=== PATIENT | female | born 1970 | race Caucasian/White ===

== ENCOUNTER 2022-04-10 08:57 | Outpatient (CLI) | payer OTHER, SELFPAY ==
[2022-04-10 13:37] LABS: Albumin* 4.8 g/dL (3.3-5.0); Chloride* 102 mmol/L (96-114)
[2022-04-10 13:38] LABS: Potassium* 4.4 mmol/L (3.6-5.1); Sodium* 140 mmol/L (135-149)
[2022-04-10 13:40] LABS: Aspartate Amino Transferase* 27 U/L (12-35); Bilirubin Total* 0.7 mg/dL (0.1-1.5); Blood Urea Nitrogen* 13 mg/dL (7-30); Carbon Dioxide* 28 mmol/L (20-32); Cholesterol* 226 mg/dL (90-199); Creatinine* 0.6 mg/dL (0.5-1.5); Estimated Glomerular Filt Rate 107 ml/min; Total Protein* 7.6 g/dL (6.0-8.3)
[2022-04-10 13:41] LABS: Alanine Aminotransferase* 29 U/L (4-35); Alkaline Phosphatase* 83 U/L (40-150); Calcium* 9.7 mg/dL (8.4-10.6); Glucose* 135 mg/dL (60-115); HDL Cholesterol* 44 mg/dL (>=50); LDL Cholesterol Calculated 132 mg/dL (<100); Triglycerides* 251 mg/dL (40-149)
== END 2022-04-10 08:58 | disposition home or self-care (01) ==
PROVIDERS: PCP Physician Assistant Medical; Visit Provider Physician Assistant Medical
DX: Z01.419 Encounter for gynecological examination (general) (routine) without abnormal findings (principal); Z13.6 Encounter for screening for cardiovascular disorders; Z13.29 Encounter for screening for other suspected endocrine disorder
CPT/HCPCS: 80053; 80061; 84443

== ENCOUNTER 2022-06-24 08:50 | Outpatient (CLI) | payer OTHER, SELFPAY | END 2022-06-24 08:51 | disposition home or self-care (01) | LOC: OP CLINIC 08:52 | PROVIDERS: PCP Physician Assistant Medical; Visit Provider Surgery | DX: Z12.11 Encounter for screening for malignant neoplasm of colon (principal); K64.9 Unspecified hemorrhoids; K62.1 Rectal polyp; K57.30 Diverticulosis of large intestine without perforation or abscess without bleeding | CPT/HCPCS: 45385; 88305; 99153; J2250; J3010 ==

== ENCOUNTER 2022-10-11 08:34 | Outpatient (CLI) | payer OTHER, SELFPAY | END 2022-10-11 08:35 | disposition home or self-care (01) | LOC: NFLDREF 10-14 12:16 | PROVIDERS: PCP Physician Assistant Medical; Referring Provider Physician Assistant Medical; Visit Provider Physician Assistant Medical | DX: H53.9 Unspecified visual disturbance (principal) | CPT/HCPCS: 84550; 86200; 86592 ==

== ENCOUNTER 2023-07-14 15:56 | Outpatient (CLI) | payer OTHER, SELFPAY | END 2023-07-14 15:57 | disposition home or self-care (01) | LOC: NFLDREF 07-16 07:36 | PROVIDERS: PCP Physician Assistant Medical; Referring Provider Physician Assistant Medical; Visit Provider Physician Assistant Medical | DX: E11.9 Type 2 diabetes mellitus without complications (principal); E78.5 Hyperlipidemia, unspecified; Z79.84 Long term (current) use of oral hypoglycemic drugs | CPT/HCPCS: 80053; 80061; 82043; 82570 ==

== ENCOUNTER 2023-08-04 07:45 | Outpatient (CLI) | payer OTHER, SELFPAY | END 2023-08-04 07:46 | disposition home or self-care (01) | LOC: NFLDREF 08-13 12:32 | PROVIDERS: PCP Physician Assistant Medical; Referring Provider Physician Assistant Medical; Visit Provider Physician Assistant Medical | DX: E78.1 Pure hyperglyceridemia (principal) | CPT/HCPCS: 80061 ==

== ENCOUNTER 2024-08-09 07:42 | Outpatient (CLI) | payer OTHER, SELFPAY | END 2024-08-09 07:43 | disposition home or self-care (01) | LOC: NFLDREF 23:57 | PROVIDERS: PCP Physician Assistant Medical; Referring Provider Physician Assistant Medical; Visit Provider Physician Assistant Medical | DX: Z00.00 Encounter for general adult medical examination without abnormal findings (principal); E78.5 Hyperlipidemia, unspecified; E78.1 Pure hyperglyceridemia; E11.9 Type 2 diabetes mellitus without complications; R03.0 Elevated blood-pressure reading, without diagnosis of hypertension; E66.9 Obesity, unspecified | CPT/HCPCS: 80053; 80061; 82043; 82570 ==

== ENCOUNTER 2024-11-08 08:24 | Outpatient (CLI) | payer OTHER, SELFPAY | END 2024-11-08 08:25 | disposition home or self-care (01) | PROVIDERS: PCP Physician Assistant Medical; Visit Provider Physician Assistant Medical | DX: E78.5 Hyperlipidemia, unspecified (principal); E11.65 Type 2 diabetes mellitus with hyperglycemia; Z79.84 Long term (current) use of oral hypoglycemic drugs | CPT/HCPCS: 80061; 84450; 84460 ==

== ENCOUNTER 2025-02-17 07:45 | Outpatient (CLI) | payer OTHER, SELFPAY | END 2025-02-17 07:46 | disposition home or self-care (01) | LOC: NFLDREF 02-21 16:04 | PROVIDERS: PCP Physician Assistant Medical; Referring Provider Physician Assistant Medical; Visit Provider Physician Assistant Medical | DX: I10 Essential (primary) hypertension (principal); E78.1 Pure hyperglyceridemia; E78.2 Mixed hyperlipidemia; E11.9 Type 2 diabetes mellitus without complications | CPT/HCPCS: 80053; 80061; 82043; 82570; 84443 ==